=== PATIENT | male | born 1950 | race Caucasian/White ===

== ENCOUNTER 2024-02-24 17:07 | Observation (INO) ==
[2024-02-24] MEDS: Lactated Ringers 1000 ml BAG IV.FLUID IV ONE (19:05)
[2024-02-24 19:19] LABS: Albumin/Globulin Ratio 1.4 (1-3); Calcium 9.2 mg/dL (8.6-10.3); Creatinine, Serum 1.83 mg/dL (0.67-1.17); Globulin 2.9 g/dL (2-4); Total Bilirubin 0.6 mg/dL (0.2-1.0); Total Protein 6.9 g/dL (6.4-8.9)
[2024-02-24 19:38] LABS: ABS Eosinophils 0.1 10^3/uL (0.0-0.5); ABS Lymphocytes 0.8 10^3/uL (1.0-4.8); ABS Monocytes 0.3 10^3/uL (0.0-1.1); ABS Neutrophils 3.4 10^3/uL (1.5-7.6); Anisocytosis 2+; Eosinophil % 3.2 %; Hematocrit 22.5 % (38-53); Hemoglobin 6.7 g/dL (13.2-16.3); Hypochromasia 2+; Lymphocyte % 15.9 %; Mean Corpuscular Hemoglobin 20.6 pg (27-33); Mean Corpuscular Hgb Conc 29.7 g/dL (31-36); Mean Corpuscular Volume 69.2 fL (80-97); Mean Platelet Volume 7.3 fL (7.5-11.2); Microcytosis 3+; Nucleated Red Blood Cells % 0.1 %/100WBC (0.0-0.8); Platelet Count 406 10^3/uL (150-450); Red Blood Count 3.25 10^6/uL (4.06-5.63); Red Cell Distribution Width 23.3 % (12-17); White Blood Count 4.7 10^3/uL (3.6-10.2)
[2024-02-24 19:50] LABS: Urine Appearance Clear; Urine Bilirubin Negative (Negative); Urine Blood Negative (Negative); Urine Color Light-Yellow; Urine Glucose Negative (Negative); Urine Ketones Negative (Negative); Urine Nitrite Negative (Negative); Urine Protein Negative (Negative); Urine Specific Gravity 1.009 (1.002-1.030); Urine Urobilinogen Negative (Negative); Urine pH 5.5 (5.0-8.0)
[2024-02-24 20:15] LABS: High Sensitivity Troponin 1 Hr 7 pg/mL (<20)
[2024-02-24] MEDS: Iodixanol 320 (CONTRAST) 100 ML SDV IV ONE (21:14)
[2024-02-24 23:17] LABS: Iron < 20 ug/dL (50-212)
[2024-02-24 23:40] LABS: Ferritin 2.6 ng/mL (24-336)
[2024-02-24 23:44] LABS: Folate 9.02 ng/mL (5.90-24.80)
[2024-02-24 23:45] LABS: Vitamin B12 89 pg/mL (180-914)
[2024-02-25] MEDS ORDERED: Sulfur Hexaflouride MICROSPHR 25 MG VIAL IV PRN (01:30)
[2024-02-25 01:37] LABS: Urine Appearance Clear; Urine Bilirubin Negative (Negative); Urine Blood 3+ (Negative); Urine Color Colorless; Urine Glucose Negative (Negative); Urine Ketones Negative (Negative); Urine Nitrite Negative (Negative); Urine Protein 1+ (>=30 mg/dL) (Negative); Urine Specific Gravity 1.011 (1.002-1.030); Urine Urobilinogen Negative (Negative)
[2024-02-25 01:41] LABS: Urine Bacteria Absent /HPF (Absent); Urine Red Blood Cell 3+(>10/hpf) /HPF (0-Trace); Urine White Blood Cell Trace(0-5/hpf) /HPF (0-Trace)
[2024-02-25] MEDS: Ferric Gluconate IV 250 MG in NS 0.9% 250 ml 200 ML IVPB SCH (03:29)
[2024-02-25 03:43] LABS: Magnesium 2.1 mg/dL (1.9-2.7)
[2024-02-25 03:59] LABS: TSH Ultra Thyroid Stim Horm 3.13 mcIU/mL (0.34-5.60)
[2024-02-25] MEDS: Heparin 5000 UNITS/ML 1 mL VIAL SUBCUT SCH (04:59)
[2024-02-25 05:44] LABS: Activated Partial Thrombo Time 35.7 seconds (26.0-38.0); INR 1.1 (0.85-1.14)
[2024-02-25 05:54] LABS: Calcium 8.7 mg/dL (8.6-10.3); Creatinine, Serum 1.74 mg/dL (0.67-1.17); Potassium 3.8 mmol/L (3.5-5.0); eGFR CKD-EPI 40.4 (>60)
[2024-02-25 06:01] LABS: Hematocrit 27.8 % (38-53); Hemoglobin 8.6 g/dL (13.2-16.3); Mean Corpuscular Hemoglobin 21.9 pg (27-33); Mean Corpuscular Hgb Conc 30.8 g/dL (31-36); Platelet Count 361 10^3/uL (150-450); Red Blood Count 3.92 10^6/uL (4.06-5.63); Red Cell Distribution Width 23.5 % (12-17); White Blood Count 4.5 10^3/uL (3.6-10.2)
[2024-02-25] MEDS: Lactated Ringers 1000 ml BAG 1,000 ML IV SCH (07:19)
[2024-02-25] MEDS: Cyanocobalamin INJ 1,000 MCG/ML VIAL 1 ML VIAL IM SCH (14:11)
[2024-02-25 14:19] LABS: PSA Screen Ultra Sensitive 86.009 ng/mL (0-4.000)
[2024-02-25 15:00] LABS: Hematocrit 24.2 % (38-53); Hemoglobin 7.7 g/dL (13.2-16.3)
[2024-02-25 15:32] LABS: Calcium 8.1 mg/dL (8.6-10.3); Creatinine, Serum 1.38 mg/dL (0.67-1.17); Potassium 3.7 mmol/L (3.5-5.0); eGFR CKD-EPI 53.3 (>60)
[2024-02-25] MEDS: Potassium Chlor 20 meq TAB.ER PO ONE (16:56)
[2024-02-25 20:19] LABS: Hematocrit 25.8 % (38-53)
[2024-02-26 06:28] LABS: ABS Eosinophils 0.2 10^3/uL (0.0-0.5); ABS Lymphocytes 0.8 10^3/uL (1.0-4.8); ABS Monocytes 0.4 10^3/uL (0.0-1.1); ABS Neutrophils 3.3 10^3/uL (1.5-7.6); Eosinophil % 3.7 %; Hematocrit 24.2 % (38-53); Hemoglobin 7.8 g/dL (13.2-16.3); Lymphocyte % 17.6 %; Mean Corpuscular Hemoglobin 22.8 pg (27-33); Mean Corpuscular Hgb Conc 32.1 g/dL (31-36); Mean Corpuscular Volume 71.2 fL (80-97); Mean Platelet Volume 7.2 fL (7.5-11.2); Nucleated Red Blood Cells % 0.1 %/100WBC (0.0-0.8); Platelet Count 303 10^3/uL (150-450); Red Cell Distribution Width 23.2 % (12-17); White Blood Count 4.8 10^3/uL (3.6-10.2)
[2024-02-26 06:45] LABS: Albumin 3.1 g/dL (3.2-5.2); Albumin/Globulin Ratio 1.4 (1-3); Calcium 8.4 mg/dL (8.6-10.3); Creatinine, Serum 1.07 mg/dL (0.67-1.17); Globulin 2.2 g/dL (2-4); Magnesium 1.7 mg/dL (1.9-2.7); Phosphorus 2.7 mg/dL (2.5-5.0); Potassium 3.9 mmol/L (3.5-5.0); Total Bilirubin 0.6 mg/dL (0.2-1.0); Total Protein 5.3 g/dL (6.4-8.9); eGFR CKD-EPI 72.4 (>60)
[2024-02-26] MEDS: Magnesium Sulfate 2 gm BAG 2 GM/50 ML BAG IVPB ONE (11:10)
[2024-02-26 17:33] LABS: Hematocrit 27.5 % (38-53); Hemoglobin 8.6 g/dL (13.2-16.3)
[2024-02-27 05:59] LABS: ABS Eosinophils 0.2 10^3/uL (0.0-0.5); ABS Lymphocytes 0.9 10^3/uL (1.0-4.8); ABS Monocytes 0.4 10^3/uL (0.0-1.1); ABS Neutrophils 3.4 10^3/uL (1.5-7.6); ABS Nucleated RBC 0.01 10^3/ul; Eosinophil % 4.1 %; Hematocrit 25.1 % (38-53); Hemoglobin 7.9 g/dL (13.2-16.3); Lymphocyte % 17.7 %; Mean Corpuscular Hemoglobin 22.4 pg (27-33); Mean Corpuscular Hgb Conc 31.5 g/dL (31-36); Mean Corpuscular Volume 71.1 fL (80-97); Mean Platelet Volume 8.2 fL (7.5-11.2); Nucleated Red Blood Cells % 0.1 %/100WBC (0.0-0.8); Platelet Count 280 10^3/uL (150-450); Red Blood Count 3.52 10^6/uL (4.06-5.63); White Blood Count 4.9 10^3/uL (3.6-10.2)
[2024-02-27 07:06] LABS: Calcium 8.5 mg/dL (8.6-10.3); Creatinine, Serum 1.01 mg/dL (0.67-1.17); Magnesium 1.8 mg/dL (1.9-2.7); Potassium 3.8 mmol/L (3.5-5.0); eGFR CKD-EPI 77.6 (>60)
[2024-02-27] MEDS: Magnesium Sulfate 2 gm BAG 2 GM/50 ML BAG IVPB ONE (11:22)
[2024-02-27 15:25] LABS: Vitamin D Total 25(OH) 29.6 ng/mL (20-50)
[2024-02-27 17:07] VITALS: BP 145/72
== END 2024-02-27 19:30 | disposition home or self-care (01) ==
LOC: ED 17:07 → EDHOLD 17:07 → SUATTDRO 02-25 01:25 → MED 02-25 02:54
PROVIDERS: ADMIT Internal Medicine; ATTEND Hospitalist

== ENCOUNTER 2024-04-19 08:37 | Observation (INO) ==
[~2024-04-19 08:37] MED LIST: NS 0.45% 1000 ml BAG 1,000 ML IV SCH; Naloxone 0.4 mg VIAL 0.4 mg/ml 1 ml VIAL IV PRN; Ondansetron 4 mg VIAL 2 MG/ML 2 ml VIAL IV PRN; fentaNYL 100 mcg/2 ml 50 MCG/ML VIAL IV PRN
[2024-04-19 09:31] LABS: Rapid COVID-19 Molecular Undetected (Undetected)
[2024-04-19] MEDS ORDERED: Lidocaine 2% PF 5 ML VIAL ONE (10:13)
[2024-04-19] MEDS ORDERED: fentaNYL 100 mcg/2 ml 50 MCG/ML VIAL ONE ×2 (10:13→11:37)
[2024-04-19] MEDS ORDERED: Propofol 10 MG/ML 20 ML BTL ONE (10:13)
[2024-04-19] MEDS ORDERED: Midazolam 2 mg/2 ml VIAL 1 mg/ml 2 ml VIAL (2 mg) ONE (10:14)
[2024-04-19] MEDS ORDERED: Ondansetron 4 mg VIAL 2 MG/ML 2 ml VIAL IV PRN (10:22)
[2024-04-19] MEDS ORDERED: Glycopyrrolate IV 0.2 MG/ML 1 ML VIAL ONE (11:07)
[2024-04-19] MEDS ORDERED: Dexamethasone IV 4 MG/ML VIAL 1 ml VIAL ONE (11:07)
[2024-04-19] MEDS ORDERED: Ondansetron 4 mg VIAL 2 MG/ML 2 ml VIAL ONE (11:07)
[2024-04-19] MEDS ORDERED: Furosemide 20 mg/2 ml IV VIAL ONE (12:00)
[2024-04-19] MEDS: NS 0.9% 1000 ml BAG 1,000 ML IV SCH (14:08)
[2024-04-19] MEDS: Buffered Lidocaine 1% SYRIN 1 ml INTRADERM ONE (14:57)
[2024-04-19] MEDS: Acetaminophen IV 1 GM/100ML 1,000 MG/100 ML BAG IV ONE (14:57)
[2024-04-19] MEDS: Neomycin/Polym/Bacit TOP OINT 15 GM TOPICAL SCH (15:04)
[2024-04-19] MEDS: GENTAMICIN ADULT IVPB ONE (15:06)
[2024-04-19] MEDS: Ampicillin ADVAN 2 GM in NS 0.9% 100 ML 100 ML IVPB ONE (15:06)
[2024-04-19] MEDS: NS 0.9% IVPB ONE (15:06)
[2024-04-19] MEDS: Lactated Ringers 1000 ml BAG 1,000 ML IV SCH (15:27)
[2024-04-19] MEDS: Magnesium Hydroxide LIQ 30 ML UDC PO SCH (23:20)
[2024-04-20 09:57] VITALS: BP 126/75
== END 2024-04-20 14:10 | disposition home or self-care (01) ==
LOC: OR 08:37 → SSU 08:37
PROVIDERS: ADMIT Urology; ATTEND Urology